=== PATIENT | male | born 1990 | race Caucasian/White ===

== ENCOUNTER 2019-04-25 21:43 | Inpatient (IN) | payer SELFPAY ==
[~2019-04-25] VITALS: Ht 177.8 cm; Wt 91.6 kg
[2019-04-25] MEDS ORDERED: PANTOPRAZOLE 40 MG 10ML VIAL IV STA (21:54)
[2019-04-25] MEDS ORDERED: SODIUM CHLORIDE 0.9% 1000ML 1,000 ML IV STA (21:54)
[2019-04-25] MEDS ORDERED: ONDANSETRON HCL INJ 2MG/ML 2ML 2 MG/ML VIAL IV STA (21:54)
[2019-04-25] MEDS ORDERED: METRONIDAZOLE 500MG/NS 100ML 100 ML IV STA (21:57)
[2019-04-25] MEDS ORDERED: CEFTRIAXONE SOD 1 GM/NS 50 ML 50 ML IV ONE (22:00)
[2019-04-25] MEDS ORDERED: ACETAMINOPHEN 325 MG TAB PO ONE (22:00)
[2019-04-25] MEDS ORDERED: METRONIDAZOLE 750MG/NS 150ML 150 ML IV STA (22:14)
[2019-04-25] MEDS ORDERED: SODIUM CHLORIDE 0.9% 1000ML 1,000 ML IV SCH ×2 (22:15)
[2019-04-25] MEDS ORDERED: MORPHINE SULFATE INJ 4 MG/ML INJ 1ML IV ONE (22:15)
[2019-04-25] MEDS ORDERED: MORPHINE SULFATE INJ 4 MG/ML INJ 1ML ONE (22:22)
[2019-04-25] MEDS ORDERED: MORPHINE SULFATE 2 MG/ML SYR 1ML ONE (22:23)
[2019-04-25 22:39] LABS: BASOPHILS # (AUTO) 0.1 (0.0-0.1); BASOPHILS % 0.4 % (0.0-1.0); EOSINOPHILS # (AUTO) 0.2 (0.0-0.4); EOSINOPHILS % 1.5 % (0.0-6.0); HEMATOCRIT 43.9 % (38.2-49.6); HEMOGLOBIN 15.3 g/dL (14.0-18.0); LYMPHOCYTES # (AUTO) 2.6 (1.0-3.2); LYMPHOCYTES % 20.2 % (18.0-39.1); MEAN CORPUSCULAR HEMOGLOBIN 31.9 pg (28-32); MEAN CORPUSCULAR HGB CONC 34.9 g/dL (31-35); MEAN CORPUSCULAR VOLUME 91.6 fL (81-99); MONOCYTES # (AUTO) 1.2 (0.2-0.8); MONOCYTES % 9.3 % (4.4-11.3); NEUTROPHILS # (AUTO) 8.9 (2.1-6.9); PLATELET COUNT 236 x10e3/uL (140-360); RED BLOOD COUNT 4.79 x10e6/uL (4.3-5.7); RED CELL DISTRIBUTION WIDTH 11.9 % (11.7-14.4)
[2019-04-25 22:49] LABS: BILIRUBIN,URINE NEGATIVE (NEGATIVE); CLARITY,URINE CLEAR (CLEAR); COLOR,URINE YELLOW (YELLOW); KETONES,URINE NEGATIVE (NEGATIVE); LEUKOCYTE ESTERASE ,URINE NEGATIVE (NEGATIVE); NITRITE,URINE NEGATIVE (NEGATIVE); PROTEIN,URINE DIPSTICK 1+ (NEGATIVE); URINE UROBILINOGEN 2 mg/dL (0.2 - 1)
[2019-04-25] MEDS ORDERED: METRONIDAZOLE 500MG/NS 100ML 100 ML IV ONE (23:00)
[2019-04-25 23:01] LABS: ALANINE AMINOTRANSFERASE 13 IU/L (0-55); ALBUMIN 3.5 g/dL (3.5-5.0); ALBUMIN/GLOBULIN RATIO 0.7 (0.8-2.0); ALKALINE PHOSPHATASE 63 IU/L (40-150); ANION GAP 17.3 mmol/L (8-16); BLOOD UREA NITROGEN 16 mg/dL (7-26); BUN/CREATININE RATIO 14 (6-25); CALCIUM 10.6 mg/dL (8.4-10.2); CARBON DIOXIDE 27 mmol/L (22-29); CHLORIDE 98 mmol/L (98-107); CREATINE KINASE 65 IU/L (30-200); CREATININE, SERUM 1.16 mg/dL (0.72-1.25); EST GLOMERULAR FILTRATION RATE > 60 ML/MIN (60-); GLUCOSE 95 mg/dL (74-118); LIPASE 6 U/L (8-78); POTASSIUM 3.3 mmol/L (3.5-5.1); RBC,URINE 0-5 /HPF (0-5); SODIUM 139 mmol/L (136-145); WBC,URINE (MAN) 0-5 /HPF (0-5)
[2019-04-25 23:02] LABS: BACTERIA,URINE RARE /HPF; EPITHELIAL CELLS,URINE RARE /LPF
[2019-04-26] MEDS ORDERED: IOPAMIDOL 370 MG/ML 200 ML INFUS..BTL INJ ONE (00:12)
[2019-04-26] MEDS ORDERED: SODIUM CHLORIDE 0.9% 50ML 50 ML ONE (00:12)
--- NOTE | 2019-04-26 00:50 | Diagnostic Imaging Report ---
EXAM: CT Abdomen and Pelvis WITH contrast INDICATION: ^llq pain ^[id number] ^0015 COMPARISON: None. TECHNIQUE: Abdomen and pelvis were scanned utilizing a multidetector helical scanner from the lung base to the pubic symphysis after administration of IV contrast. Coronal and sagittal reformations were obtained. Dose modulation, iterative reconstruction, and/or weight based adjustment of the mA/kV was utilized to reduce the radiation dose to as low as reasonably achievable. Routine protocol was performed. Scan was performed when during portal venous phase. IV CONTRAST: 100 mL of Isovue-370 ORAL CONTRAST: Water COMPLICATIONS: None RADIATION DOSE: Total DLP: 540.25 mGy*cm Estimated effective dose: (DLP x 0.015 x size factor) mSv CTDIvol has been reviewed. It is below the limits set by the Radiation Protocol Committee (RPC). FINDINGS: LINES and TUBES: None. LOWER THORAX: Unremarkable HEPATOBILIARY: No focal hepatic lesions. No biliary ductal dilation. GALLBLADDER: No radio-opaque stones or sludge. No wall thickening. SPLEEN: No splenomegaly. PANCREAS: No focal masses or ductal dilatation. ADRENALS: No adrenal nodules KIDNEYS/URETERS: Kidneys enhance symmetrically. No hydronephrosis. No cystic or solid mass lesions. No stones. GI TRACT: No abnormal distention or evidence of bowel obstruction. Left lower quadrant colonic wall thickening with surrounding inflammation and small foci of extraluminal air. Appendix is normal. PELVIC ORGANS/BLADDER: Unremarkable. LYMPH NODES: No lymphadenopathy. 1.1 cm left para-aortic and few mesenteric lymph nodes, likely reactive. VESSELS: Unremarkable. PERITONEUM / RETROPERITONEUM: No free air or fluid. BONES: Left femoral head sclerotic focus, likely a bone island. SOFT TISSUES: Unremarkable. IMPRESSION: Perforated left lower quadrant diverticulitis. No evidence of abscess formation. Findings discussed with at 12:46 AM, on 04/26/2019. Signed by: Dr. Segun Lopez MD on 04/26/2019 12:47 AM
[2019-04-26] MEDS: CEFTRIAXONE SOD 1 GM/NS 50 ML 50 ML IV SCH (02:55)
--- OUTSIDE RECORDS SUMMARY | 2019-04-26 03:02 | XMS REPORT ---
Author [facility] Address Unknown Phone Unavailable Care Team Providers Care Operator Name Role Phone Nuria HUSTON Unavailable Unavailable Problems This patient has no known problems. Allergies, Adverse Reactions, Alerts This patient has no known allergies or adverse reactions. Medications This patient has no known medications. Results Test Description Test Time Test Comments Text Results Atomic Results Result Comments CT ABDOMEN/PELVIS W 2019-04-26 00:39:00 [place] [address] Patient Name: TYLER DONALDSON MR #: [id number] : 1990 Age/Sex: 28/M Req #: [id number] [facility] Physician: Ordered by: FELECIA HUSTON MD Report #: [id number] Location: ER Room/Bed: Procedure: CT/CT ABDOMEN/PELVIS W Exam Date: 04/26/19 Exam Time: 14 REPORT STATUS: Signed EXAM: CT Abdomen and Pelvis WITH contrast INDICATION: llq pain [id number] COMPARISON: None. TECHNIQUE: Abdomen and pelvis were scanned utilizing a multidetector helical scanner from the lung base to the pubic symphysis after administration of IV contrast. Coronal and sagittal reformations were obtained. Dose modulation, iterative reconstruction, and/or weight based adjustment of the mA/kV was utilized to reduce the radiation dose to as low as reasonably achievable. Routine protocol was performed. Scan was performed when during portal venous phase. IV CONTRAST: 100 mL of Isovue-370 ORAL CONTRAST: Water COMPLICATIONS: None RADIATION DOSE: Total DLP: 540.25 mGy*cm Estimated effective dose: (DLP x 0.015 x size factor) mSv CTDIvol has been reviewed. It is below the limits set by the Radiation Protocol Committee (RPC). FINDINGS: LINES and TUBES: None. LOWER THORAX: Unremarkable HEPATOBILIARY: No focal hepatic lesions. No biliary ductal dilation. GALLBLADDER: No radio-opaque stones or sludge. No wall thickening. SPLEEN: No splenomegaly. PANCREAS: No focal masses or ductal dilatation. ADRENALS: No adrenal nodules KIDNEYS/URETERS: Kidneys enhance symmetrically. No hydronephrosis. No cystic or solid mass lesions. No stones. GI TRACT: No abnormal distention or evidence of bowel obstruction. Left lower quadrant colonic wall thickening with surrounding inflammation and small foci of extraluminal air. Appendix is normal. PELVIC ORGANS/BLADDER: Unremarkable. LYMPH NODES: No lym phadenopathy. 1.1 cm left para-aortic and few mesenteric lymph nodes, likely reactive. VESSELS: Unremarkable. PERITONEUM / RETROPERITONEUM: No free air or fluid. BONES: Left femoral head sclerotic focus, likely a bone island. SOFT TISSUES: Unremarkable. IMPRESSION: Perforated left lower quadrant diverticulitis. No evidence of abscess formation. Findings discussed with at 12:46 AM, on 04/26/2019. Signed by: Dr. Segun Haider MD on 04/26/2019 12:47 AM Dictated By: SEGUN HAIDER MD Transcribed By: CARROLL on 04/26/1947 COPY TO: FELECIA HUSTON MD
[2019-04-26 05:08] LABS: BASOPHILS % 0.5 % (0.0-1.0); EOSINOPHILS # (AUTO) 0.2 (0.0-0.4); EOSINOPHILS % 2.5 % (0.0-6.0); HEMATOCRIT 35.9 % (38.2-49.6); HEMOGLOBIN 12.4 g/dL (14.0-18.0); LYMPHOCYTES # (AUTO) 1.9 (1.0-3.2); LYMPHOCYTES % 21.6 % (18.0-39.1); MEAN CORPUSCULAR HEMOGLOBIN 32.2 pg (28-32); MEAN CORPUSCULAR HGB CONC 34.5 g/dL (31-35); MEAN CORPUSCULAR VOLUME 93.2 fL (81-99); MONOCYTES % 11.1 % (4.4-11.3); NEUTROPHILS # (AUTO) 5.5 (2.1-6.9); NEUTROPHILS % 63.9 % (38.7-80.0); PLATELET COUNT 157 x10e3/uL (140-360); RED BLOOD COUNT 3.85 x10e6/uL (4.3-5.7); RED CELL DISTRIBUTION WIDTH 11.9 % (11.7-14.4)
[2019-04-26 05:16] LABS: ALANINE AMINOTRANSFERASE 10 IU/L (0-55); ALBUMIN 2.6 g/dL (3.5-5.0); ALBUMIN/GLOBULIN RATIO 0.8 (0.8-2.0); ALKALINE PHOSPHATASE 44 IU/L (40-150); ANION GAP 10.8 mmol/L (8-16); BLOOD UREA NITROGEN 13 mg/dL (7-26); BUN/CREATININE RATIO 13 (6-25); CALCIUM 8.4 mg/dL (8.4-10.2); CARBON DIOXIDE 25 mmol/L (22-29); CHLORIDE 105 mmol/L (98-107); CREATININE, SERUM 1.01 mg/dL (0.72-1.25); EST GLOMERULAR FILTRATION RATE > 60 ML/MIN (60-); GLUCOSE 105 mg/dL (74-118); POTASSIUM 3.8 mmol/L (3.5-5.1); SODIUM 137 mmol/L (136-145)
--- NOTE | 2019-04-26 07:00 | NUR ---
REPORT TO SHAWN BARRAGAN
--- NOTE | 2019-04-26 07:01 | NUR ---
RECEIVED REPORT FROM OFF GOING NURSE. PATIENT IN ROOM IN BED, AWAKE AND ALERT. NO S/S OF ACUTE DISTRESS. REPORTS PAIN 8/10, PRN PAIN MEDS ORDERED. NPO FOR PROCEDURE TODAY. FAMILY AT BEDSIDE. BED DOWN CALL LIGHT IN REACH.
[2019-04-26] MEDS: METRONIDAZOLE 500MG/NS 100ML 100 ML IV SCH ×3 (07:26→21:44)
[2019-04-26] MEDS: MORPHINE SULFATE 2 MG/ML SYR 1ML IV PRN ×4 (07:27→20:21)
[2019-04-26] MEDS: SODIUM CHLORIDE 0.9% 1000ML 1,000 ML IV SCH ×2 (12:29→20:21)
--- NOTE | 2019-04-26 13:17 | History and Physical ---
CHIEF COMPLAINT: Left lower quadrant abdominal pain. HISTORY OF PRESENT ILLNESS: This is a 28-year-old male with history of diverticulitis in the past, very noncompliant following up with his medical doctor, comes into the ED with complaints of left lower quadrant abdominal pain that started since of last week. He reports that it was colicky in nature, episodically in pain on and off. Yesterday due to the significant pain, he came into the emergency room for further evaluation. Denies any fever at home. Reports having some nausea, decreased oral intake, but no vomiting. The patient is seen and evaluated at bedside in the ER. He is currently doing well with no other issues at this time. CT imaging was concerning for underlying perforated diverticulitis, but for now, according to General Surgery, they would like to do medical management. It seems that it maybe a contained perforation, but I am not sure, which I will defer to General Surgery. There is no abscess seen according to the findings. REVIEW OF SYSTEMS: Pertinent positives: Left lower quadrant abdominal pain, nausea, decreased oral intake. Pertinent negatives: Denies any chest pain, palpitation, nausea, vomiting, diarrhea, dysuria, hematuria, frequency, urgency, lightheadedness, dizziness, cough, congestion, fever, or any other complaints. The rest of 14-point review of systems have been reviewed with the patient and are negative. ALLERGIES: NO KNOWN DRUG ALLERGIES. HOME MEDICATIONS: None. PAST MEDICAL HISTORY: History of diverticulitis. PAST SURGICAL HISTORY: Reports none. FAMILY HISTORY: He has family history of diverticulitis. SOCIAL HISTORY: No drugs. No alcohol. Does not smoke. Good social support. PHYSICAL EXAMINATION: VITAL SIGNS: Temperature is 98.8 with T-max was 100.6 on arrival, pulse 86, respiratory rate is 18, blood pressure 111/65, and pulse ox 95% on room air. GENERAL: Not in acute distress. Alert and oriented x3. Cooperative on examination. HEENT: Head; normocephalic, atraumatic. Eyes; pupils are equal, round, and reactive to light bilaterally. Extraocular movements intact bilaterally. Throat; no evidence of erythema or exudates in the posterior pharynx. Has poor dentition. NECK: Supple. Good range of motion. PULMONARY: Clear to auscultation bilaterally. No wheezing, no rales, no rhonchi, no crackles appreciated. CARDIOVASCULAR: Positive S1 and S2. No murmurs, rubs, or gallops appreciated. ABDOMEN: He has some tenderness in the left lower quadrant. No rebound. No guarding. Bowel sounds are present. MUSCULOSKELETAL: Strength is 5/5 throughout. No evidence of any muscle deficits on examination. No weakness appreciated. NEUROLOGIC: Cranial nerve II through XII grossly intact. No evidence of any neurological deficits on exam. SKIN: Intact. Warm to touch. Good cap refill. PSYCHIATRIC: Normal affect and mood. EXTREMITIES: No edema. Good range of motion throughout. LABORATORY FINDINGS: Show white count on admission 13, now 8.5, hemoglobin 12.4, hematocrit was 35, platelets of 157. Chemistry; sodium 137, potassium 3.8, chloride 105, bicarb 25, anion gap of 10, BUN is 13, creatinine is 1, glucose is 105, calcium is 8.4. LFTs within normal range. Troponins are negative. Total protein 5.9, albumin 2.6. Urinalysis noted. MICROBIOLOGY: Blood cultures are pending. IMAGING STUDIES: CT abdomen and pelvis, impression; perforated left lower quadrant diverticulitis. No evidence of abscess formation. IMPRESSION: 1. Acute diverticulitis, concern for underlying bowel perforation per imaging studies. 2. Dehydration. 3. Nausea, decreased oral intake. PLAN: At this time, imaging studies were noted. I discussed this case with Dr. Toribio, General Surgery. At this time, he only recommends medical management. He also reiterated this to the patient and the patient reiterated to me, the medical management is only needed at this time. So at this time, we will continue to monitor very closely. Continue with IV antibiotics, pain control, and p.o. IV fluids. I discussed with the patient that if he had any severe pain, to the let us know as soon as possible, he may need repeat imaging studies to see if this is gotten worse. I will defer imaging to General Surgery as they are expertise. At this time, he will commence medical management. He is already on pain control, antibiotics, and IV fluids. Blood cultures are pending. Put on Lovenox for DVT prophylaxis. Otherwise, we will continue to monitor very closely. JiMD ADOLPH Ramos/DIMITRIL /[id number]
[2019-04-26] MEDS: ENOXAPARIN SOD INJ 40 MG/0.4 ML SYR SC SCH (17:08)
--- NOTE | 2019-04-26 17:39 | Consultation ---
DATE OF CONSULTATION: 04/26/2019 HISTORY OF PRESENT ILLNESS: The patient is a 28-year-old male, presents with complaints of left lower quadrant abdominal pain. He has associated nausea and some diarrhea. He says the pain started a couple of days ago. He has not had similar pains in the past. He has also had associated fever. Evaluation in the emergency room with CT of the abdomen and pelvis, revealed findings of acute sigmoid diverticulitis with contained perforation. The patient says he feels better since he has come in the hospital. PAST MEDICAL HISTORY: Otherwise, unremarkable. He denies chronic medical problems. PAST SURGICAL HISTORY: He had previous surgery as a for pyloric stenosis as well as surgery on his ankle few years ago. ALLERGIES: THERE ARE NO KNOWN ALLERGIES. MEDICATIONS: No current medications. FAMILY HISTORY: Noncontributory. SOCIAL HISTORY: The patient does not smoke cigarettes or drink alcohol. REVIEW OF SYSTEMS: As stated above, otherwise was negative. PHYSICAL EXAMINATION: GENERAL: The patient is awake and alert, in no distress. VITAL SIGNS: At this time are normal. He did have tachycardia and some fever on arrival. HEENT: Sclerae is not icteric. NECK: Supple. No masses. LUNGS: Equal breath sounds are clear bilaterally. CARDIAC: Regular rate and rhythm with no murmur. ABDOMEN: Tender in left lower quadrant, localized signs of peritonitis. There is no mass. No distention. No organomegaly. EXTREMITIES: Have no edema. Pulses are palpable. NEUROLOGIC: Intact. LABS TEST: White blood cell count on arrival was 13,000 repeat is 8.6; hemoglobin and hematocrit are normal. Differential is normal. Chemistries are essentially normal. ASSESSMENT: A 28-year-old male with acute sigmoid diverticulitis with contained perforation. At this point, recommend continue the patient on IV antibiotics and IV fluids. Recommend keeping the patient n.p.o. until his symptoms start to improve. Most likely, he will resolve without requiring surgical intervention. However, if symptoms persist or worsen or recur, then surgery may be indicated. Thank you for asking me to see Mr. Berkowitz. MD NICOLE Gallo/WILBER /[id number]
[2019-04-26] MEDS: ONDANSETRON HCL INJ 2MG/ML 2ML 2 MG/ML VIAL IV PRN (20:21)
[2019-04-27] MEDS: CEFTRIAXONE SOD 1 GM/NS 50 ML 50 ML IV SCH (02:21)
[2019-04-27] MEDS: METRONIDAZOLE 500MG/NS 100ML 100 ML IV SCH ×3 (02:29→22:00)
[2019-04-27] MEDS: ONDANSETRON HCL INJ 2MG/ML 2ML 2 MG/ML VIAL IV PRN ×4 (02:29→20:00)
[2019-04-27] MEDS: MORPHINE SULFATE 2 MG/ML SYR 1ML IV PRN ×5 (02:29→20:00)
[2019-04-27 05:47] LABS: BASOPHILS % 0.4 % (0.0-1.0); EOSINOPHILS # (AUTO) 0.2 (0.0-0.4); EOSINOPHILS % 2.3 % (0.0-6.0); HEMATOCRIT 35.2 % (38.2-49.6); HEMOGLOBIN 12.1 g/dL (14.0-18.0); LYMPHOCYTES # (AUTO) 1.4 (1.0-3.2); LYMPHOCYTES % 16.6 % (18.0-39.1); MEAN CORPUSCULAR HEMOGLOBIN 32.3 pg (28-32); MEAN CORPUSCULAR HGB CONC 34.4 g/dL (31-35); MEAN CORPUSCULAR VOLUME 93.9 fL (81-99); MONOCYTES # (AUTO) 0.8 (0.2-0.8); NEUTROPHILS # (AUTO) 5.8 (2.1-6.9); NEUTROPHILS % 70.3 % (38.7-80.0); PLATELET COUNT 169 x10e3/uL (140-360); RED BLOOD COUNT 3.75 x10e6/uL (4.3-5.7); RED CELL DISTRIBUTION WIDTH 11.8 % (11.7-14.4)
[2019-04-27 06:03] LABS: ALANINE AMINOTRANSFERASE 7 IU/L (0-55); ALBUMIN 2.7 g/dL (3.5-5.0); ALBUMIN/GLOBULIN RATIO 0.7 (0.8-2.0); ALKALINE PHOSPHATASE 47 IU/L (40-150); ANION GAP 14.6 mmol/L (8-16); BLOOD UREA NITROGEN 6 mg/dL (7-26); BUN/CREATININE RATIO 7 (6-25); CALCIUM 9.3 mg/dL (8.4-10.2); CARBON DIOXIDE 23 mmol/L (22-29); CHLORIDE 105 mmol/L (98-107); CREATININE, SERUM 0.82 mg/dL (0.72-1.25); EST GLOMERULAR FILTRATION RATE > 60 ML/MIN (60-); GLUCOSE 79 mg/dL (74-118); POTASSIUM 3.6 mmol/L (3.5-5.1); SODIUM 139 mmol/L (136-145)
[2019-04-27] MEDS: SODIUM CHLORIDE 0.9% 1000ML 1,000 ML IV SCH ×2 (09:48→17:44)
--- NOTE | 2019-04-27 11:50 | NUR ---
RECEIVED PT FROM ER. BRUNO. PT IS ON NPO. EDUCATED PT ABOUT FALL PRECAUTIONS. PT VERBALIZED UNDERSTANDING. CALL LIGHT WITH IN EASY REACH. PT DENIES NEEDS AT THIS TIME.
[2019-04-27 12:00] VITALS: BP 136/83
--- NOTE | 2019-04-27 12:10 | NUR ---
DR. MIXON AT BEDSIDE. CHANGED DIET TO CLEAR LIQUID.
[2019-04-27 12:53] VITALS: BP 136/83
--- NOTE | 2019-04-27 14:44 | Progress Note ---
DATE: 04/27/2019 Medicine Progress Note SUBJECTIVE: The patient denies any abdominal pain. His diet has been advanced to clear liquids by General Surgery. PHYSICAL EXAMINATION: VITAL SIGNS: Temperature 98.7, pulse 81, respiratory rate is 18, blood pressure 126/86, pulse ox 99% on room air. GENERAL: Not in acute distress. Alert and oriented x3. Cooperative on examination. HEENT: Head; normocephalic, atraumatic. Eyes; pupils are equal, round, and reactive to light bilaterally. Extraocular movements are intact bilaterally. Throat; no evidence of erythema or exudates in the posterior pharynx. Has poor dentition. NECK: Supple. Good range of motion. PULMONARY: Clear to auscultation bilaterally. No wheezing, no rales, no rhonchi, no crackles appreciated. CARDIOVASCULAR: Positive S1 and S2. No murmurs, rubs, or gallops appreciated. ABDOMEN: Soft, nondistended, and nontender to palpation. Bowel sounds present. MUSCULOSKELETAL: Strength is 5/5 throughout. No evidence of any muscle deficits on examination. No weakness appreciated. NEUROLOGIC: Cranial nerve 2 through 12 grossly intact. No evidence of any neurological deficits on exam. SKIN: Intact. Warm to touch. Good cap refill. PSYCHIATRIC: Normal affect and mood. EXTREMITIES: No edema. Good range of motion throughout. LABORATORY DATA: Lab findings show white count 8.1, hemoglobin 12.1, hematocrit 35, and platelets of 169. Chemistries reviewed and stable. MICROBIOLOGY: Blood cultures no growth. IMAGING STUDIES: None today. IMPRESSION: 1. Acute diverticulitis concerning for underlying bowel perforation, but the patient improved tremendously. 2. Dehydration. 3. Nausea, decreased oral intake. PLAN: At this time, I spoke with General Surgery. The patient is improving tremendously. Continue with IV antibiotics. Pain control. His diet has been advanced to clear liquids at this time, but he recommends medical management since the patient has improved tremendously. We will continue to monitor closely. If his diet is solid tomorrow and cleared by General Surgery, we will discharge home. MD ADOLPH Hensley/WILBER /[id number]
[2019-04-27 17:11] VITALS: BP 128/86
[2019-04-27] MEDS: ENOXAPARIN SOD INJ 40 MG/0.4 ML SYR SC SCH (17:44)
--- NOTE | 2019-04-27 19:37 | NUR ---
Received change of shift report from AM nurse. Walking rounds completed.
[2019-04-27 19:45] VITALS: BP 121/82
--- NOTE | 2019-04-27 21:00 | NUR ---
Patient c/o pain. Nausea and pain meds given as ordered by MD.
--- NOTE | 2019-04-27 23:00 | NUR ---
Patient c/o of GALAN. Called MD and received order for tylenol. Meds given as ordered by MD. Continue monitor.
[2019-04-28] VITALS (8 sets, daily range): BP systolic 111–158; BP diastolic 75–98
[2019-04-28] MEDS: ACETAMINOPHEN 325 MG TAB PO PRN ×2 (00:40→21:08)
[2019-04-28] MEDS: CEFTRIAXONE SOD 1 GM/NS 50 ML 50 ML IV SCH (01:06)
[2019-04-28] MEDS: MORPHINE SULFATE 2 MG/ML SYR 1ML IV PRN ×3 (03:47→16:31)
[2019-04-28] MEDS: ONDANSETRON HCL INJ 2MG/ML 2ML 2 MG/ML VIAL IV PRN (03:47)
[2019-04-28] MEDS: SODIUM CHLORIDE 0.9% 1000ML 1,000 ML IV SCH (04:30)
[2019-04-28 05:53] LABS: BASOPHILS % 0.2 % (0.0-1.0); EOSINOPHILS # (AUTO) 0.2 (0.0-0.4); EOSINOPHILS % 2.4 % (0.0-6.0); HEMATOCRIT 37.1 % (38.2-49.6); HEMOGLOBIN 13.1 g/dL (14.0-18.0); LYMPHOCYTES # (AUTO) 1.6 (1.0-3.2); LYMPHOCYTES % 19.6 % (18.0-39.1); MEAN CORPUSCULAR HEMOGLOBIN 32.2 pg (28-32); MEAN CORPUSCULAR HGB CONC 35.3 g/dL (31-35); MEAN CORPUSCULAR VOLUME 91.2 fL (81-99); MONOCYTES # (AUTO) 0.7 (0.2-0.8); MONOCYTES % 9.1 % (4.4-11.3); NEUTROPHILS # (AUTO) 5.5 (2.1-6.9); NEUTROPHILS % 68.2 % (38.7-80.0); PLATELET COUNT 192 x10e3/uL (140-360); RED BLOOD COUNT 4.07 x10e6/uL (4.3-5.7); RED CELL DISTRIBUTION WIDTH 11.5 % (11.7-14.4)
[2019-04-28] MEDS: METRONIDAZOLE 500MG/NS 100ML 100 ML IV SCH ×3 (06:00→21:02)
[2019-04-28 06:13] LABS: ANION GAP 14.4 mmol/L (8-16); BLOOD UREA NITROGEN 9 mg/dL (7-26); BUN/CREATININE RATIO 9 (6-25); CALCIUM 9.5 mg/dL (8.4-10.2); CARBON DIOXIDE 25 mmol/L (22-29); CHLORIDE 104 mmol/L (98-107); CREATININE, SERUM 0.95 mg/dL (0.72-1.25); EST GLOMERULAR FILTRATION RATE > 60 ML/MIN (60-); POTASSIUM 3.4 mmol/L (3.5-5.1); SODIUM 140 mmol/L (136-145)
--- NOTE | 2019-04-28 06:21 | NUR ---
Patient resting quitly at this time. Continue monitor
[2019-04-28 06:34] LABS: GLUCOSE 76 mg/dL (74-118)
--- NOTE | 2019-04-28 07:00 | NUR ---
BEDSIDE SHIFT REPORT RECEIVED FROM THE DIRECTOR SERVICE RN. PT DENIES NEEDS AT THIS TIME.
--- NOTE | 2019-04-28 11:45 | NUR ---
DR. PEARL AT BEDSIDE. NEW ORDER RECEIVED FOR PYRIDIUM 100 MG PO BID.
[2019-04-28] MEDS: PHENAZOPYRIDINE HCL 100 MG TAB PO SCH ×2 (12:28→16:31)
[2019-04-28] MEDS ORDERED: POTASSIUM CHLORIDE 20 MEQ TAB CR PO ONE (13:00)
[2019-04-28] MEDS ORDERED: SODIUM CHLORIDE FLUSH 10 ML SYR INJ PRN (13:15)
--- NOTE | 2019-04-28 14:45 | Progress Note ---
DATE: 04/28/2019 Medicine Progress Note SUBJECTIVE: The patient reports having some dysuria when he pees. He is currently on antibiotics. His UA was clear. We will add some Pyridium. Reports that his abdominal pain has much improved. He is tolerating clear liquid diet well. PHYSICAL EXAMINATION: VITAL SIGNS: Temperature 97.5, pulse 72, respiratory rate is 20, blood pressure 126/88, and pulse ox 96% on room air. GENERAL: Not in acute distress. Alert and oriented x3. Cooperative on examination. HEENT: Head; normocephalic, atraumatic. Eyes; pupils are equal, round, and reactive to light bilaterally. Extraocular movements intact bilaterally. Throat; no evidence of erythema or exudates in the posterior pharynx. Has poor dentition. NECK: Supple. Good range of motion. PULMONARY: Clear to auscultation bilaterally. No wheezing, no rales, no rhonchi, no crackles appreciated. CARDIOVASCULAR: Positive S1 and S2. No murmurs, rubs, or gallops appreciated. ABDOMEN: Soft, nondistended, and nontender to palpation. Bowel sounds present. MUSCULOSKELETAL: Strength is 5/5 throughout. No evidence of any muscle deficits on examination. No weakness appreciated. NEUROLOGIC: Cranial nerve II through XII grossly intact. No evidence of any neurological deficits on exam. SKIN: Intact. Warm to touch. Good cap refill. PSYCHIATRIC: Normal affect and mood. EXTREMITIES: No edema. Good range of motion throughout. LABORATORY FINDINGS: Show white count 8, hemoglobin 13, hematocrit 37, platelets of 192. Chemistry; sodium 140, potassium 3.4, chloride 104, bicarb 25, anion gap 14, BUN 9, creatinine 0.95. Blood cultures no growth. IMPRESSION: 1. Acute diverticulitis concerning for underlying bowel perforation, but improving tremendously and doing very well, tolerating diet well. Clear liquid diet. 2. Dehydration. 3. Nausea with decreased oral intake. PLAN: At this time, I spoke with General Surgery. Recommends are conservative treatment at this time. He is on clear liquid diet and will advance diet per General Surgery. He is on IV antibiotics. We will add Pyridium for underlying dysuria. His UA was clear negative. We will monitor him closely. Possibly discharge tomorrow if cleared by General Surgery. MD ADOLPH Hensley/WILBER /[id number]
[2019-04-28] MEDS: ENOXAPARIN SOD INJ 40 MG/0.4 ML SYR SC SCH (16:31)
--- NOTE | 2019-04-28 19:00 | NUR ---
received report from day nurse. patient is resting comfortably in the bed. bed is in the lowest position and call neri is within reach. will continue to monitor patient.
--- NOTE | 2019-04-28 19:00 | NUR ---
BEDSIDE SHIFT REPORT GIVEN TO THE TURN OPERATOR RN. PT DENIED FURTHER NEEDS.
--- NOTE | 2019-04-28 20:02 | NUR ---
patient complaining of not being able to have a bowel movement. MD notified. received new order for 1 bottle of magnesium citrate and one time dose of 200mg of colace. Will monitor patient for bowel movements.
[2019-04-28] MEDS ORDERED: CITRATE OF MAGNESIA 300ML BOTTLE PO ONE (21:00)
[2019-04-28] MEDS ORDERED: DOCUSATE SODIUM LIQD 100 MG/10 ML UDC NG ONE (21:00)
[2019-04-29] MEDS: CEFTRIAXONE SOD 1 GM/NS 50 ML 50 ML IV SCH (01:19)
[2019-04-29 04:00] VITALS: BP 114/84
[2019-04-29] MEDS: METRONIDAZOLE 500MG/NS 100ML 100 ML IV SCH ×3 (06:44→22:18)
--- NOTE | 2019-04-29 06:54 | NUR ---
report given to day nurse. patient is resting comfortably in bed. bed is in lowest position and call light is within reach.
[2019-04-29 07:39] VITALS: BP 116/79
[2019-04-29] MEDS: PHENAZOPYRIDINE HCL 100 MG TAB PO SCH ×2 (10:20→17:55)
[2019-04-29 10:26] VITALS: BP 116/79
[2019-04-29 12:04] VITALS: BP 131/92
--- NOTE | 2019-04-29 12:20 | Progress Note ---
DATE: 04/29/2019 Medicine Progress Note SUBJECTIVE: The patient is doing well with no other issues. The patient is on solid food now. He reported that he was very constipated yesterday. He was given some Mag citrate and some oral Colace. No overnight events. He has several bowel movements due to the stool softener. PHYSICAL EXAMINATION: VITAL SIGNS: Temperature 98.3, pulse 66, respiratory rate is 17, blood pressure 116/79, and pulse ox 99% on room air. GENERAL: Not in acute distress. Alert and oriented x3. Cooperative on examination. HEENT: Head; normocephalic, atraumatic. Eyes; pupils are equal, round, and reactive to light bilaterally. Extraocular movements intact bilaterally. Throat; no evidence of erythema or exudates in the posterior pharynx. Has poor dentition. NECK: Supple. Good range of motion. PULMONARY: Clear to auscultation bilaterally. No wheezing, no rales, no rhonchi, no crackles appreciated. CARDIOVASCULAR: Positive S1 and S2. No murmurs, rubs, or gallops appreciated. ABDOMEN: Soft, nondistended, and nontender to palpation. Bowel sounds present. MUSCULOSKELETAL: Strength is 5/5 throughout. No evidence of any muscle deficits on examination. No weakness appreciated. NEUROLOGIC: Cranial nerve II through XII grossly intact. No evidence of any neurological deficits on exam. SKIN: Intact. Warm to touch. Good cap refill. PSYCHIATRIC: Normal affect and mood. EXTREMITIES: No edema. Good range of motion throughout. LABORATORY FINDINGS: Show white count 8, hemoglobin 13, hematocrit 37, platelets of 192. Chemistry reviewed and stable. IMPRESSION: 1. Acute diverticulitis with possible underlying bowel perforation, but improved tremendously, doing well, tolerating diet well, now on regular diet. 2. Dehydration. 3. Nausea with decreased oral intake, improved. PLAN: At this time, per General Surgery, the patient will continue with conservative treatment. Diet has been advanced to regular. I added Pyridium yesterday for dysuria, which improved tremendously. According to General Surgery, the patient would be here another day and if he does very well tomorrow, we will be discharged on oral antibiotics and discharge to home. We will go ahead and get a.m. labs as well. Discussed plan of care with the patient and nursing staff. MD ADOLPH Hensley/WILBER /[id number]
[2019-04-29 16:05] VITALS: BP 128/82
[2019-04-29] MEDS ORDERED: SODIUM CHLORIDE 0.9% 250ML 250 ML ONE (17:34)
[2019-04-29] MEDS: ENOXAPARIN SOD INJ 40 MG/0.4 ML SYR SC SCH (17:55)
[2019-04-29] MEDS: ONDANSETRON HCL INJ 2MG/ML 2ML 2 MG/ML VIAL IV PRN (17:58)
[2019-04-29] MEDS: MORPHINE SULFATE 2 MG/ML SYR 1ML IV PRN (17:58)
[2019-04-29 20:00] VITALS: BP 117/73
[2019-04-30] VITALS (8 sets, daily range): BP systolic 115–130; BP diastolic 72–86
[2019-04-30] MEDS: CEFTRIAXONE SOD 1 GM/NS 50 ML 50 ML IV SCH (01:40)
[2019-04-30] MEDS: MORPHINE SULFATE 2 MG/ML SYR 1ML IV PRN ×4 (02:05→18:35)
[2019-04-30] MEDS: ONDANSETRON HCL INJ 2MG/ML 2ML 2 MG/ML VIAL IV PRN ×4 (02:05→18:35)
[2019-04-30] MEDS: METRONIDAZOLE 500MG/NS 100ML 100 ML IV SCH ×3 (05:15→21:19)
[2019-04-30 06:39] LABS: BASOPHILS # (AUTO) 0.1 (0.0-0.1); BASOPHILS % 0.4 % (0.0-1.0); EOSINOPHILS # (AUTO) 0.3 (0.0-0.4); EOSINOPHILS % 2.4 % (0.0-6.0); HEMATOCRIT 40.4 % (38.2-49.6); HEMOGLOBIN 13.8 g/dL (14.0-18.0); LYMPHOCYTES # (AUTO) 2.2 (1.0-3.2); MEAN CORPUSCULAR HEMOGLOBIN 31.3 pg (28-32); MEAN CORPUSCULAR HGB CONC 34.2 g/dL (31-35); MEAN CORPUSCULAR VOLUME 91.6 fL (81-99); MONOCYTES % 8.6 % (4.4-11.3); NEUTROPHILS # (AUTO) 7.8 (2.1-6.9); NEUTROPHILS % 69.2 % (38.7-80.0); PLATELET COUNT 248 x10e3/uL (140-360); RED BLOOD COUNT 4.41 x10e6/uL (4.3-5.7); RED CELL DISTRIBUTION WIDTH 11.5 % (11.7-14.4)
[2019-04-30 06:57] LABS: ANION GAP 12.6 mmol/L (8-16); BLOOD UREA NITROGEN 14 mg/dL (7-26); BUN/CREATININE RATIO 16 (6-25); CALCIUM 9.6 mg/dL (8.4-10.2); CARBON DIOXIDE 27 mmol/L (22-29); CHLORIDE 101 mmol/L (98-107); CREATININE, SERUM 0.89 mg/dL (0.72-1.25); EST GLOMERULAR FILTRATION RATE > 60 ML/MIN (60-); GLUCOSE 88 mg/dL (74-118); POTASSIUM 3.6 mmol/L (3.5-5.1); SODIUM 137 mmol/L (136-145)
--- NOTE | 2019-04-30 07:22 | NUR ---
report given to day nurse. patient is resting comfortably in bed. bed is in lowest position and call light is within reach.
--- NOTE | 2019-04-30 07:23 | NUR ---
PATIENT IN BED RESTING WITH NO DISTRESS. NOTIFIED TO REMAIN NPO FOR CT ABDOMEN, HE VERBALIZED UNDERSTANDING. BED IN LOWER POSITION, CALL LIGHT AT REACH.
[2019-04-30] MEDS ORDERED: DIATRIZOATE MEGL/DIATRIZOA SOD 30 ML BTL PO ONE (08:14)
[2019-04-30] MEDS: PHENAZOPYRIDINE HCL 100 MG TAB PO SCH ×2 (09:00→17:00)
--- NOTE | 2019-04-30 10:40 | NUR ---
PATIENT OFF UNIT TO RADIOLOGY.
--- NOTE | 2019-04-30 11:02 | NUR ---
PATIENT BACK TO UNIT FROM RADIOLOGY.
--- NOTE | 2019-04-30 11:28 | Diagnostic Imaging Report ---
EXAM: CT Abdomen and Pelvis WITH intravenous contrast INDICATION: Abdominal pain COMPARISON: CT abdomen and pelvis of 04/26/2019 TECHNIQUE: Abdomen and pelvis were scanned utilizing a multidetector helical scanner from the lung base to the pubic symphysis after administration of IV contrast. Coronal and sagittal reformations were obtained. Routine protocol was performed. Scan was performed during portal venous phase. IV CONTRAST: 100mL of Isovue 370 ORAL CONTRAST: Gastrografin RADIATION DOSE: Total DLP: 458.8 mGy*cm Dose modulation, iterative reconstruction, and/or weight based adjustment of the mA/kV was utilized to reduce the radiation dose to as low as reasonably achievable. FINDINGS: LOWER THORAX: Normal. HEPATOBILIARY: Liver size is at the upper limits of normal. Mild hepatic steatosis. No focal liver lesion. No biliary ductal dilation. Unremarkable appearing gallbladder. SPLEEN: No splenomegaly. PANCREAS: No focal masses or ductal dilatation. ADRENALS: No adrenal nodules. KIDNEYS/URETERS: No hydronephrosis, stones, or solid mass lesions. PELVIC ORGANS/BLADDER: Unremarkable. PERITONEUM / RETROPERITONEUM: See GI tract section. LYMPH NODES: No lymphadenopathy. VESSELS: Unremarkable. GI TRACT: Again seen is sigmoid diverticulosis associated with sigmoid bowel wall thickening in the region of multiple diverticuli and adjacent fat stranding consistent with acute diverticulitis. There is a new adjacent 3.0 x 3.0 cm gas containing collection consistent with perforation and diverticular abscess. BONES AND SOFT TISSUES: No acute osseous injury. No suspicious lytic or blastic lesions. IMPRESSION: Perforated sigmoid diverticulosis with new associated 3.0 x 3.0 cm diverticular abscess. Mild hepatic steatosis. Signed by: Kylah Mckeon MD on 04/30/2019 11:24 AM
[2019-04-30] MEDS ORDERED: DEXTROSE 5%/0.225% SOD CHL 1,000 ML IV SCH (11:30)
[2019-04-30] MEDS: DEXTROSE 5%/0.9% SOD CHL 1,000 ML IV SCH (12:50)
--- NOTE | 2019-04-30 14:16 | Progress Note ---
DATE: 04/30/2019 SUBJECTIVE: The patient is complaining of severe abdominal pain. A stat CT abdomen and pelvis have been ordered with oral contrast. He has been made n.p.o. General surgery already evaluated him this morning. I discussed plan of care with nursing staff, once the results are back of the CT to please call, and also notify the surgeon. PHYSICAL EXAMINATION: VITAL SIGNS: Temperature is 96.6, pulse 64, respiratory pressure 19, blood pressure 117/72, pulse ox 95% on room air. GENERAL: Not in acute distress. Alert and oriented x3. Cooperative on examination. HEENT: Head; normocephalic, atraumatic. Eyes; pupils are equal, round, and reactive to light bilaterally. Extraocular movements intact bilaterally. Throat; no evidence of erythema or exudates in the posterior pharynx. Has poor dentition. NECK: Supple. Good range of motion. PULMONARY: Clear to auscultation bilaterally. No wheezing, no rales, no rhonchi, no crackles appreciated. CARDIOVASCULAR: Positive S1 and S2. No murmurs, rubs, or gallops appreciated. ABDOMEN: He was tender to palpation on examination. Bowel sounds are present. MUSCULOSKELETAL: Strength is 5/5 throughout. No evidence of any muscle deficits on examination. No weakness appreciated. NEUROLOGIC: Cranial nerve II through XII grossly intact. No evidence of any neurological deficits on exam. SKIN: Intact. Warm to touch. Good cap refill. PSYCHIATRIC: Normal affect and mood. EXTREMITIES: No edema. Good range of motion throughout. LAB FINDINGS: Show white count 11.3, hemoglobin 13.8, hematocrit is 40, platelets of 248. Chemistry: Sodium 137, potassium 3.6, chloride 101, bicarb 27, anion gap is 12, BUN 14, creatinine 0.89. Urinalysis was negative. MICROBIOLOGY: Blood cultures were negative. IMAGING STUDIES: There is a stat CT abdomen and pelvis has been ordered now, which is currently pending. IMPRESSION: 1. Acute diverticulitis with possible underlying bowel perforation, now he is complaining of severe abdominal pain. 2. Dehydration. 3. Nausea with decreased oral intake. PLAN: At this time stat CT abdomen and pelvis with oral contrast has been ordered by General Surgery. We are going to make the patient n.p.o., IV fluids and pain control. We are going to continue with IV antibiotic therapy as well. Once the results are back that it has been ordered stat, the nursing staff is to notify the surgeon and also call me with the results. I discussed the plan of care with the patient at bedside with the nurse present. We are going to get the stat CT and go from there and have General surgery way in on the results. The patient verbalized understanding and agrees to plan of care as described. MD ADOLPH Hensley/WILBER /[id number]
[2019-04-30] MEDS ORDERED: IOPAMIDOL 370 MG/ML 200 ML INFUS..BTL INJ ONE (15:47)
[2019-04-30] MEDS ORDERED: SODIUM CHLORIDE 0.9% 50ML 50 ML ONE (15:47)
--- NOTE | 2019-04-30 16:38 | NUR ---
PATIENT IN BED PLAYING ON HIS COMPUTER, NO COMPLAIN VOICED. CALL LIGHT AT REACH.
[2019-04-30] MEDS: ENOXAPARIN SOD INJ 40 MG/0.4 ML SYR SC SCH (17:00)
--- NOTE | 2019-04-30 19:15 | NUR ---
patient received awake, alert, lying quietly in bed. no c/o pain noted. ivf continue to infuse without difficulty. pm assessment complete. patient instructed to call for assistance when needed.
[2019-05-01] VITALS (8 sets, daily range): BP systolic 111–129; BP diastolic 56–87
[2019-05-01] MEDS: MORPHINE SULFATE 2 MG/ML SYR 1ML IV PRN ×5 (00:40→20:45)
[2019-05-01] MEDS: ONDANSETRON HCL INJ 2MG/ML 2ML 2 MG/ML VIAL IV PRN ×5 (00:40→20:45)
[2019-05-01] MEDS: DEXTROSE 5%/0.9% SOD CHL 1,000 ML IV SCH ×2 (00:40→13:00)
--- NOTE | 2019-05-01 00:40 | NUR ---
patient medicated with morphine 4mg and zofran 4mg ivp for c/o lower abd pain 9/10 at this time per patients request.
[2019-05-01] MEDS: CEFTRIAXONE SOD 1 GM/NS 50 ML 50 ML IV SCH (01:18)
[2019-05-01] MEDS: METRONIDAZOLE 500MG/NS 100ML 100 ML IV SCH ×3 (05:10→21:40)
--- NOTE | 2019-05-01 05:10 | NUR ---
patient medicated with morphine 4mg and zofran 4mg ivp for c/o pain 03/06 at this time per patients request.
--- NOTE | 2019-05-01 07:17 | NUR ---
PATIENT IN BED RESTING WITH NO RESPIRATORY DISTRESS. REMAINS NPO, IV FLUID INFUSING ORDERED. BED IN LOWER POSITION, CALL LIGHT AT REACH.
--- NOTE | 2019-05-01 11:32 | NUR ---
PATIENT AMBULATING IN HALLWAY WITH FAMILY MEMBERS, NO COMPLAIN VOICED. WILL CONTINUE TO MONITOR.
--- NOTE | 2019-05-01 15:59 | NUR ---
MD IN TO SEE PATIENT, ORDER RECEIVED TO PROVIDE PATIENT WITH SOME ICE SHIPS. OUT OF BED TO CHAIR TALKING TO FAMILY MEMBERS VISITING. CALL LIGHT AT REACH.
--- NOTE | 2019-05-01 16:02 | Progress Note ---
DATE: 05/01/2019 Medicine Progress Note SUBJECTIVE: The patient reports still having some abdominal pain. CT imaging concerning for underlying abdominal abscess around the diverticular site. PHYSICAL EXAMINATION: VITAL SIGNS: Temperature is 98.6, pulse 68, respiratory rate is 18, blood pressure 120/74, pulse ox 95% on room air. GENERAL: Not in acute distress. Alert and oriented x3. Cooperative on examination. HEENT: Head; normocephalic, atraumatic. Eyes; pupils are equal, round, and reactive to light bilaterally. Extraocular movements intact bilaterally. Throat; no evidence of erythema or exudates in the posterior pharynx. Has poor dentition. NECK: Supple. Good range of motion. PULMONARY: Clear to auscultation bilaterally. No wheezing, no rales, no rhonchi, no crackles appreciated. CARDIOVASCULAR: Positive S1 and S2. No murmurs, rubs, or gallops appreciated. ABDOMEN: Soft, nondistended. Tender to palpation on examination appreciated. Bowel sounds present. MUSCULOSKELETAL: Strength is 5/5 throughout. No evidence of any muscle deficits on examination. No weakness appreciated. NEUROLOGIC: Cranial nerve II through XII grossly intact. No evidence of any neurological deficits on exam. SKIN: Intact. Warm to touch. Good cap refill. PSYCHIATRIC: Normal affect and mood. EXTREMITIES: No edema. Good range of motion throughout. LABORATORY FINDINGS: Show white count was 11.3, hemoglobin 13.8, hematocrit was 40, platelets of 248. Chemistry reviewed and stable. MICROBIOLOGY: Blood cultures, no growth to-date. IMAGING STUDIES: CT abdomen and pelvis shows a perforated sigmoid diverticulosis with associated 3 x 3 diverticular abscess and mild hepatic steatosis. IMPRESSION: 1. Acute diverticulitis with underlying perforation of the bowel with a diverticular abscess seen on new CT imaging findings performed on 04/30/2019. 2. Dehydration. 3. Nausea with decreased oral intake. PLAN: At this time, CT abdomen and pelvis results have been noted with evidence of a diverticular abscess. General Surgery's note does not specify a whole lot, seems like they are okay with ice chips. I am not sure if General Surgery wants to do any surgical intervention on this patient. If this needs to be drained, we can have IR, do CT-guided drainage, which probably will occur here on Friday. The patient is relatively stable. He is afebrile, normotensive. He is talking, alert and oriented x4 with no issues. I need to await for General Surgery's final recommendations and see what is the next plan of care. I spoke with the patient at bedside with the nurse present throughout the entire conversation. Hopefully, this surgery can weigh in further and see what is the next plan of care for this patient. MD ADOLPH Hensley/WILBER /[id number]
--- NOTE | 2019-05-01 16:52 | NUR ---
Nutrition Screen Note RD Recommendation for Physician: 1. Once medically appropriate advance diet to Regular Diet Plan of Care: RD following, monitoring for tolerance and adequacy Nutrition reason for involvement: LOS Primary Diagnose(s): Diverticulitis PMH: Diverticulitis Ht: 70in Wt: 200lbs BMI: 28.69kg/m2 IBW: 166lbs +/- 10% RD Assessment: (05/01) Chart reviewed. Labs and meds reviewed. 29 y/o M with history of diverticulitis. Pt pleasantly sitting upright with family members at bedside during time of visit, reported feeling better today. Reported good appetite and intake, stated eating well at home and during admission. Noted stable weight with UBW of 200 lbs. Currently NPO. Denied any recent or ongoing N/V/D/C or any difficulties with chewing/swallowing. Answered patient nutrition related questions, will continue to monitor and follow as needed. Current Diet: NPO Malnutrition Evaluation (05/01) The patient does not meet criteria for a specified degree of malnutrition at this time. Will re-evaluate at follow-up as appropriate. Nutrition Care Level: LOW Signed: Mariluz Esqueda, MS, RDN, LD
[2019-05-01] MEDS: ENOXAPARIN SOD INJ 40 MG/0.4 ML SYR SC SCH (17:21)
--- NOTE | 2019-05-01 19:15 | NUR ---
patient received awake, alert, lying quietly in bed. no c/o pain noted at this time. ivf continue to infuse without difficulty. pm assessment complete. patient instructed to call for assistance when needed.
--- NOTE | 2019-05-01 20:45 | NUR ---
patient medicated with morphine 4mg and zofran 4mg ivp for c/o lower abd pain 7/10 at this time.
[2019-05-02] VITALS (8 sets, daily range): BP systolic 109–123; BP diastolic 66–84
[2019-05-02] MEDS: CEFTRIAXONE SOD 1 GM/NS 50 ML 50 ML IV SCH (01:29)
[2019-05-02] MEDS: DEXTROSE 5%/0.9% SOD CHL 1,000 ML IV SCH ×3 (01:30→14:30)
[2019-05-02] MEDS: ONDANSETRON HCL INJ 2MG/ML 2ML 2 MG/ML VIAL IV PRN (05:41)
[2019-05-02] MEDS: METRONIDAZOLE 500MG/NS 100ML 100 ML IV SCH ×3 (05:41→22:17)
[2019-05-02] MEDS: MORPHINE SULFATE 2 MG/ML SYR 1ML IV PRN (05:41)
--- NOTE | 2019-05-02 05:41 | NUR ---
patient medicated with morphine 4mg and zofran 4mg ivp for c/o lower abd pain 7/10 at this time per patients request.
--- NOTE | 2019-05-02 07:13 | NUR ---
PATIENT IN BED RESTING WITH EYES CLOSED, NO S/S OF DISTRESS NOTED. BED IN LOWER POSITION, CALL LIGHT AT REACH.
[2019-05-02 07:42] LABS: BASOPHILS # (AUTO) 0.1 (0.0-0.1); BASOPHILS % 0.6 % (0.0-1.0); EOSINOPHILS # (AUTO) 0.3 (0.0-0.4); EOSINOPHILS % 3.6 % (0.0-6.0); HEMATOCRIT 41.9 % (38.2-49.6); LYMPHOCYTES # (AUTO) 1.9 (1.0-3.2); LYMPHOCYTES % 24.9 % (18.0-39.1); MEAN CORPUSCULAR HEMOGLOBIN 30.8 pg (28-32); MEAN CORPUSCULAR HGB CONC 33.4 g/dL (31-35); MEAN CORPUSCULAR VOLUME 92.1 fL (81-99); MONOCYTES # (AUTO) 0.8 (0.2-0.8); MONOCYTES % 10.4 % (4.4-11.3); NEUTROPHILS # (AUTO) 4.6 (2.1-6.9); NEUTROPHILS % 59.1 % (38.7-80.0); PLATELET COUNT 261 x10e3/uL (140-360); RED BLOOD COUNT 4.55 x10e6/uL (4.3-5.7); RED CELL DISTRIBUTION WIDTH 11.5 % (11.7-14.4)
[2019-05-02 08:02] LABS: ANION GAP 13.7 mmol/L (8-16); BLOOD UREA NITROGEN 8 mg/dL (7-26); BUN/CREATININE RATIO 10 (6-25); CALCIUM 9.6 mg/dL (8.4-10.2); CARBON DIOXIDE 26 mmol/L (22-29); CHLORIDE 105 mmol/L (98-107); CREATININE, SERUM 0.84 mg/dL (0.72-1.25); EST GLOMERULAR FILTRATION RATE > 60 ML/MIN (60-); GLUCOSE 75 mg/dL (74-118); POTASSIUM 3.7 mmol/L (3.5-5.1); SODIUM 141 mmol/L (136-145)
--- NOTE | 2019-05-02 11:30 | NUR ---
PATIENT AMBULATING IN HALLWAY, NO COMPLAIN VOICED. WILL CONTINUE TO MONITOR.
--- NOTE | 2019-05-02 15:08 | NUR ---
MD IN TO SEE PATIENT. NEW ORDER RECEIVED FOR CLEAR LIQUID DIET.
--- NOTE | 2019-05-02 15:22 | Progress Note ---
DATE: 05/02/2019 Medicine Progress Note SUBJECTIVE: SUBJECTIVE: The patient reports feeling much better today. No fever. His abdomen was soft, nondistended, and nontender to palpation. He is now on a liquid diet recommended by General Surgery. I spoke with General Surgery, Dr. Segal in the hospital and he reports that this is likely due to be a very small microperforation and that only IV antibiotics were truly hope in this case. He did recommend maybe having IR look at the case to see if they could put a drain, but the area of the abscess is very small. I did put an IR consult. PHYSICAL EXAMINATION: VITAL SIGNS: Temperature is 96.3, pulse 56, respiratory rate is 18, blood pressure 109/71, and pulse ox 97% on room air. GENERAL: Not in acute distress. Alert and oriented x3. Cooperative on examination. HEENT: Head; normocephalic, atraumatic. Eyes; pupils are equal, round, and reactive to light bilaterally. Extraocular movements intact bilaterally. Throat; no evidence of erythema or exudates in the posterior pharynx. Has poor dentition. NECK: Supple. Good range of motion. PULMONARY: Clear to auscultation bilaterally. No wheezing, no rales, no rhonchi, no crackles appreciated. CARDIOVASCULAR: Positive S1 and S2. No murmurs, rubs, or gallops appreciated. ABDOMEN: Soft, nondistended, and nontender to palpation. Bowel sounds present. MUSCULOSKELETAL: Strength is 5/5 throughout. No evidence of any muscle deficits on examination. No weakness appreciated. NEUROLOGIC: Cranial nerves II through XII grossly intact. No evidence of any neurological deficits on exam. SKIN: Intact. Warm to touch. Good cap refill. PSYCHIATRIC: Normal affect and mood. EXTREMITIES: No edema. Good range of motion throughout. LABORATORY FINDINGS: Show white count 7.7, hemoglobin 14, hematocrit is 41.9, and platelets of 261. Chemistries reviewed and stable. MICROBIOLOGY: Blood cultures were negative. IMPRESSION: 1. Acute diverticulitis with underlying microperforation of the bowel with a diverticular abscess seen on imaging studies, 04/30/2019. 2. Dehydration. 3. Nausea and decreased oral intake. PLAN: At this time, during my examination, the patient was doing well. His abdomen was soft and nontender during palpation. He states he is feeling better. No pain and he has no nausea. He has been restarted back on his liquid diet. We are going to continue with aggressive IV antibiotic therapy with Rocephin and Flagyl. We will go ahead and get a.m. labs. I did talk with Dr. Segal in the hospital, who reports that the area of the abscess is very small and be very difficult for IR to even attempt to drain it, but does recommend putting an order and to see if they can. At this time, there is no surgical intervention needed at this time during my conversation with him. At this time, we will continue with same plan of care and monitor very closely. We will get repeat labs in the morning. MD ADOLPH Hensley/WILBER /[id number]
[2019-05-03 00:05] VITALS: BP 109/68
[2019-05-03] MEDS: DEXTROSE 5%/0.9% SOD CHL 1,000 ML IV SCH ×2 (00:30→04:42)
[2019-05-03] MEDS: CEFTRIAXONE SOD 1 GM/NS 50 ML 50 ML IV SCH (01:38)
[2019-05-03 04:05] VITALS: BP 112/78
[2019-05-03] MEDS: METRONIDAZOLE 500MG/NS 100ML 100 ML IV SCH ×2 (05:51→14:56)
[2019-05-03 06:18] LABS: BASOPHILS % 0.5 % (0.0-1.0); EOSINOPHILS # (AUTO) 0.3 (0.0-0.4); EOSINOPHILS % 4.4 % (0.0-6.0); HEMATOCRIT 41.1 % (38.2-49.6); HEMOGLOBIN 14.3 g/dL (14.0-18.0); LYMPHOCYTES # (AUTO) 1.7 (1.0-3.2); LYMPHOCYTES % 27.1 % (18.0-39.1); MEAN CORPUSCULAR HEMOGLOBIN 31.5 pg (28-32); MEAN CORPUSCULAR HGB CONC 34.8 g/dL (31-35); MEAN CORPUSCULAR VOLUME 90.5 fL (81-99); MONOCYTES # (AUTO) 0.7 (0.2-0.8); MONOCYTES % 10.7 % (4.4-11.3); NEUTROPHILS # (AUTO) 3.4 (2.1-6.9); NEUTROPHILS % 55.7 % (38.7-80.0); PLATELET COUNT 267 x10e3/uL (140-360); RED BLOOD COUNT 4.54 x10e6/uL (4.3-5.7); RED CELL DISTRIBUTION WIDTH 11.3 % (11.7-14.4)
[2019-05-03 06:32] LABS: INR 1.13
[2019-05-03 06:33] LABS: PARTIAL THROMBOPLASTIN TIME 45.6 seconds (23.8-35.5)
[2019-05-03 06:38] LABS: BLOOD UREA NITROGEN 9 mg/dL (7-26); BUN/CREATININE RATIO 9 (6-25); CALCIUM 9.7 mg/dL (8.4-10.2); CARBON DIOXIDE 28 mmol/L (22-29); CHLORIDE 104 mmol/L (98-107); EST GLOMERULAR FILTRATION RATE > 60 ML/MIN (60-); GLUCOSE 86 mg/dL (74-118); SODIUM 140 mmol/L (136-145)
--- NOTE | 2019-05-03 06:45 | NUR ---
received bedside report from production supervisor off shift RN, pt laying in bed, awake, alert, oriented, no distress noted, will continue to assess.
[2019-05-03 07:37] VITALS: BP 119/80
[2019-05-03 09:33] VITALS: BP 119/80
[2019-05-03] MEDS ORDERED: MIDAZOLAM HCL 2 MG/2 ML VIAL ONE (11:00)
[2019-05-03] MEDS ORDERED: FENTANYL CITRATE/PF 100MCG/2 ML INJ ONE (11:00)
[2019-05-03] MEDS ORDERED: LIDOCAINE HCL 1% LOCAL INJ 20 ML VIAL ONE (11:01)
[2019-05-03 11:55] VITALS: BP 111/70
--- NOTE | 2019-05-03 12:46 | Progress Note ---
DATE: 05/03/2019 Medicine Progress Note SUBJECTIVE: The patient is in the process of going to IR today to get a drain for this possible abdominal abscess. I spoke with Dr. Avilez, General Surgery, feels like that though I have IR attempt to see if they can drain that abscess. This is a microperforation according to him and the patient symptomatically is feeling much better. We will see if the IR is able to drain this abscess. PHYSICAL EXAMINATION: VITAL SIGNS: Temperature is 98, pulse 59, respiratory rate is 18, blood pressure is 119/80, and pulse ox 95% on room air. GENERAL: Not in acute distress. Alert and oriented x3. Cooperative on examination. HEENT: Head, normocephalic and atraumatic. Eyes, pupils are equal, round, and reactive to light bilaterally. Extraocular movements intact bilaterally. Throat, no evidence of erythema or exudates in the posterior pharynx. Has poor dentition. NECK: Supple. Good range of motion. PULMONARY: Clear to auscultation bilaterally. No wheezing, no rales, no rhonchi, and no crackles appreciated. CARDIOVASCULAR: Positive S1 and S2. No murmurs, rubs, or gallops appreciated. ABDOMEN: Soft, nondistended, and nontender to palpation. Bowel sounds present. MUSCULOSKELETAL: Strength is 5/5 throughout. No evidence of any muscle deficits on examination. No weakness appreciated. NEUROLOGIC: Cranial nerve II through XII grossly intact. No evidence of any neurological deficits on exam. SKIN: Intact. Warm to touch. Good cap refill. PSYCHIATRIC: Normal affect and mood. EXTREMITIES: No edema. Good range of motion throughout. LAB FINDINGS: Show white count 6, hemoglobin 14, hematocrit is 41, and platelets of 267. Coagulations are normal. Chemistries reviewed and stable. IMPRESSION: 1. Acute diverticulitis with underlying microperforation of the bowel with diverticular abscess seen on imaging studies on 04/30/2019. 2. Dehydration. 3. Nausea, decreased oral intake, improved. PLAN: At this time, the patient is in the process of going to IR to have his diverticular abscess drained if able to by Radiology. He is on a liquid diet after the procedure. General Surgery is monitoring and evaluated closely. He is on IV antibiotics with Rocephin and Flagyl. Once they are able to attempt this drainage, if they get anything, hopefully they will send it to culture and then we will have the ID consultation to evaluate this further. He is still on appropriate antibiotics for now IV Rocephin and Flagyl. We will continue with the same plan of care. Get a.m. labs. I did discuss this case with General Surgery and agrees with IR and we will monitor from there. MD ADOLPH Hensley/WILBER /[id number]
--- NOTE | 2019-05-03 13:53 | Diagnostic Imaging Report ---
EXAM: CT Pelvis WITHOUT intravenous contrast INDICATION: Diverticular abscess COMPARISON: CT abdomen and pelvis of 04/30/2019 TECHNIQUE: Pelvis were scanned utilizing a multidetector helical scanner from the iliac crest to the pubic symphysis without administration of IV contrast. Coronal and sagittal reformations were obtained. Routine protocol was performed. IV CONTRAST: None ORAL CONTRAST: None RADIATION DOSE: Total DLP: 236.9 mGy*cm COMPLICATIONS: None FINDINGS: Limited CT pelvis was performed prior to planned percutaneous drainage of diverticular abscess. Images show interval decrease in size of diverticular abscess which now measures 2.3 cm without significant fluid component. This likely represents interval response to antibiotic treatment. Slight interval decrease in pericolonic fat stranding. The pelvic organs otherwise appear unremarkable. The osseous structures appear unremarkable. IMPRESSION: Interval size of diverticular abscess with little to no fluid component and interval decrease in pericolonic inflammatory changes likely reflects interval response to antibody therapy. The collection is too small to percutaneously drain or aspirate at this point. Recommend continuation of noninvasive treatment. If the patient experiences recurring or worsening symptoms, repeat contrast-enhanced CT can be performed to assess for reaccumulation of abscess. Signed by: Kylah Mckeon MD on 05/03/2019 1:50 PM
--- NOTE | 2019-05-03 14:50 | NUR ---
SPOKE WITH DR MIXON REGARDING PT PT [place],DR MIXON STATED OK FOR PT TO GO HOME FROM SURGERY STANDPOINT,FOLLOW UP IN 2 WEEKS.
--- NOTE | 2019-05-03 15:35 | NUR ---
CALL TO [facility] FOR [facility] PLANNING STATES THE PT WILL NEED CLEARANCE FROM GEN SURGERY FIRST DUE TO MICROPERFORATION. BEDSIDE NURSE PRESENT; ELISSA. CALL WS PLACED TO DR. MIXON FOR CLEARANCE.
[2019-05-03 15:47] VITALS: BP 122/76
[2019-05-03] MEDS ORDERED: CIPRO500 MG PO (17:57)
[2019-05-03] MEDS ORDERED: FLAGYL250 MG PO (17:58)
--- NOTE | 2019-05-03 23:55 | Consultation ---
DATE OF CONSULTATION: HISTORY OF PRESENT ILLNESS: Mr. Berkowitz was admitted on April 26 with abdominal pain. He is a very pleasant 29-year-old, denies past medical history, comes in with abdominal pain. The patient has history of diverticulitis in the past. Noncompliant. The patient came to the emergency room. A CAT scan was done, showed perforated diverticulitis. He was seen by Dr. Avilez. IR consulted, but there was no abscess. The patient has been here since then. Clinically, he is improving. REVIEW OF SYSTEMS: HEENT: Negative. PULMONARY: Negative. CARDIAC: Negative. He is eating well and overall has no complaint. His cultures, there is no growth. LABORATORY DATA: White count 6.08, hemoglobin of 14. PHYSICAL EXAMINATION: GENERAL: He is currently alert, oriented, does not seem to be in acute distress. VITAL SIGNS: Stable, currently afebrile. HEENT: Not icteric. NECK: Supple. CHEST: Clear. HEART: S1 and S2. No S3, S4, or murmur. ABDOMEN: Soft. Bowel sounds present. No tenderness. EXTREMITIES: No edema. IMPRESSION: Diverticulitis, clinically better. Can discharge home with Cipro and Flagyl for 3 weeks, Cipro 5 mg p.o. b.i.d. and Flagyl 500 t.i.d. We will discharge him home. Follow up with me in three weeks. MD VINCENT Horne/WILBER /[id number]
--- NOTE | 2019-05-05 08:20 | Discharge Summary ---
FINAL DISCHARGE DIAGNOSES: 1. Acute diverticulitis with microperforation of the bowel with diverticular abscess seen on imaging studies. 2. Dehydration. 3. Nausea and vomiting, all resolved. 4. Abdominal pain, resolved. CONSULT: General Surgery and ID. PHYSICAL EXAMINATION: VITAL SIGNS: Temperature is 98.3, pulse 65, respiratory rate is 18, blood pressure 122/76, pulse ox 93% on room air. LABORATORY FINDINGS: Show white count 6, hemoglobin 14, hematocrit is 41, and platelets of 267. Coagulation; PT 15, INR 1.1, PTT 45.6. Chemistry; sodium 140, potassium 4, chloride 104, bicarb 20, anion gap of 12, BUN is 9, creatinine is 1, glucose is 86, calcium is 9.7. LFTs within normal range. Albumin was 2.7. Lipase level was 6. Troponins were negative. CK 65. Urinalysis was negative. MICROBIOLOGY: Blood cultures were negative. IMAGING STUDIES: Initial CT abdomen and pelvis on 04/26/2019, shows some evidence of perforated left lower quadrant diverticulitis. No evidence of abscess formation. Repeat CT on 04/30/2019, shows perforated sigmoid diverticulosis with associated 3 x [address] pelvis was performed on 05/03/2019, impression; interval signs of diverticular abscess with little to no fluid component and interval decrease in pericolonic inflammatory changes, likely reflection of response to antibiotic therapy. The collection is too small to percutaneously drain or aspirate at this point. Recommend continuation of noninvasive treatment. If the patient experience a recurrent worsening symptoms, repeat CT abdomen. HOSPITAL COURSE: This gentleman is a 29-year-old male, who came into the emergency room with complaints of abdominal pain, ongoing for several days prior to arrival to the hospital. CT imaging was performed, concern for underlying acute diverticulitis with microperforation. Initial CT showed no evidence of any abscess. There was no evidence of any free air according to the report. General Surgery was consulted for further evaluation and management. General Surgery recommended conservative treatment at this time as there was no emergent need for any kind of surgical intervention. The patient maintained initially n.p.o. and then advanced to clear liquid diet as his pain improved. He maintained on broad-spectrum IV antibiotics as well while here in the hospital stay. Blood cultures were negative. During his hospital course, the patient was complaining at some point of worsening abdominal pain. Repeat CT abdomen and pelvis still showed evidence of a microperforation around the area of acute diverticulitis, but commented on the 3 x 3 diverticular abscess with mild hepatic steatosis. I also spoke with General Surgery, Dr. Avilez, at that time. He reports that this area is very small. This is more microperforation, but it is contained, but agreed to Interventional Radiology intervention. On 05/03/2019, they placed a consult for Interventional Radiology, and IR repeated the CT pelvis and due to the size of the diverticular abscess, it was little to no fluid component seen and that the size has decreased tremendously and that the pericolonic inflammatory changes also changed and decreased due to antibiotic therapy. They do not recommend any drainage or any IR procedure at this time. The patient's symptoms improved tremendously throughout the hospital course. Of note, on the day of discharge, he denies any pain. Of note, he did any abdominal pain for the last 2 or 3 days while he was in the hospital stay, towards the end of his hospital stay. He was tolerating diet well with no complaints and the diet was advanced by General Surgery. Infectious Disease was consulted and recommended 3 weeks of oral antibiotic therapy, which was written for him prior to being discharged home. On discharge, the patient's symptoms were back to baseline with no complaints of abdominal pain, nausea, or vomiting. He was tolerating diet well, had no complaints. He was ambulating and he was cleared for discharge by General Surgery and ID. I did speak with General Surgery, in which he reports that he had given clearance to the nursing staff for discharge home with outpatient followup in 1 to 2 weeks in his office. The patient was discharged on oral antibiotics per ID and was cleared for discharge by General Surgery. The patient was doing well with no other complaints. He reports that he is back to his normal baseline. He will follow up closely with appropriate consultants who were taking care of him here in the hospital stay. At this time, we advised him to continue with his antibiotic therapy as this may go away, but he does need to follow up very closely with General Surgery and ID. I advised him in the event of any worsening symptoms or pain, he was advised to please come back to the emergency room as soon as possible for further management and care and evaluation. He verbalized understanding. Once again, I spoke with General Surgery by phone as well as the nursing staff spoke with him and he was cleared for discharge by General Surgery. On discharge, the patient was back to normal baseline with no other complaints. On the day of discharge, vital signs were stable, labs reviewed and stable. The patient seen and evaluated, and examined thoroughly on the day of discharge. No other complaints. The patient verbalized understanding and agrees to plan of care to followup appointment as an outpatient with the primary care physician in 1 week and General Surgery in 7 to 10 days and ID in 7 to 10 days. Also, the patient was afebrile for several days. His symptoms improved. He had no abdominal pain. No nausea. Tolerating diet well and he was responding well with antibiotics. Also, repeat CT pelvis shows no evidence of any abscess and his white count was normal, and he was cleared for discharge by all the consultants. MEDICATIONS: See med reconciliation form. DISPOSITION: To home. CONDITION: Stable. DIET: Heart healthy. In the event of any worsening symptoms, the patient was advised to come back to the ED for further evaluation. Discharge summary took greater than 35 minutes. MD ADOLPH Hensley/WILBER /[id number]
== END 2019-05-03 18:17 | disposition home or self-care (01) | DRG 379 ==
LOC: ER 21:43 → ERHOLD 04-26 02:59 → MED/SURG3 04-27 12:09
PROVIDERS: ADMIT Internal Medicine; ATTEND Internal Medicine
DX: K57.21 Diverticulitis of large intestine with perforation and abscess with bleeding (principal); E86.0 Dehydration; R11.2 Nausea with vomiting, unspecified
CPT/HCPCS: 36415; 72192; 74177; 74470; 80048; 80053; 81001; 82550; 82553; 83605; 83690; 84484; 85025; 85610; 85730; 87040; 99284; J0696; J1650; J2001; J2250; J2270; J2405; J3010; J7030; J7042; J7050; Q9967